=== PATIENT | male | born 1975 | race Caucasian/White ===

== ENCOUNTER 2021-07-03 11:22 | Emergency (ER) | payer SELFPAY ==
[~2021-07-03] VITALS: Ht 167.6 cm; Wt 80.0 kg
[2021-07-03 12:21] VITALS: BP 115/74
[2021-07-03 12:50] LABS: BASOPHILS % 0.7 % (0.0-2.0); EOSINOPHILS % 0.1 % (0.0-5.0); HEMATOCRIT. 45.8 % (42.0-52.0); HEMOGLOBIN. 14.9 g/dL (14.0-18.0); LYMPHOCYTES % 14.2 % (20.0-50.0); MEAN CORPUSCULAR HEMOGLOBIN 27.1 pg (28.0-32.0); MEAN CORPUSCULAR VOLUME 83.2 fL (80.0-94.0); MEAN PLATELET VOLUME 8.8 fl (7.4-10.4); PLATELET 262 x1000/uL (130-400); RED CELL DISTRIBUTION WIDTH 14.1 % (11.6-14.6)
[2021-07-03 12:58] LABS: CHLORIDE 103 mEq/L (98-107)
[2021-07-03 13:03] LABS: ETHANOL BLOOD < 10 mg/dL
== END 2021-07-03 15:13 | disposition left against medical advice (07) ==
LOC: ER 11:36
DX: Z13.9 Encounter for screening, unspecified (principal); I49.9 Cardiac arrhythmia, unspecified
CPT/HCPCS: 36415; 80053; 80305; 80307; 80320; 80329; 82962; 85025; 93005; 99284; G0480